=== PATIENT | female | born 1945 | race Caucasian/White ===

== ENCOUNTER 2017-10-16 14:20 | Observation (INO) | payer MEDICARE, SELFPAY ==
[2017-10-16] VITALS (12 sets, daily range): BP systolic 115–182; BP diastolic 71–100; PULSE 85–131; RESP 16–19; TEMP 36.4–36.7; O2SAT 97–99; BMI 29.7; BMI 30.4
--- NOTE | 2017-10-16 14:32 | RAD_ITS ---
STUDY: X-RAY CHEST REASON FOR EXAM: Female, 72 years old. Near-syncope episode. TECHNIQUE: AP upright portable view. COMPARISON: None. FINDINGS: The lungs are clear and expanded. There is no demonstrated pleural abnormality. Normal size heart. Normal mediastinum and jazmín. Normal visualized pulmonary arteries. Normal visualized aortic arch and descending thoracic aorta. Normal visualized thoracic spine. Normal visualized ribs, clavicles, and shoulders. There is no demonstrated abnormality of the visualized soft tissue structures of the upper abdomen. RAD/Chest 1 View (Portable) IMPRESSION: Normal x-ray examination of the chest. Electronically Signed: Scott Peralta MD at 15:17 EST , Service support ,
--- NOTE | 2017-10-16 14:33 | EKG12_ITS ---
Test Reason : SYNCOPE Blood Pressure : / mmHG Vent. Rate : 102 BPM Atrial Rate : 102 BPM P-R Int : 162 ms QRS Dur : 142 ms QT Int : 398 ms P-R-T Axes : 055 072 023 degrees QTc Int : 518 ms Sinus tachycardia Right bundle branch block Abnormal ECG Confirmed by ESEQUIEL XIAO, PARTHA ([id number]), film or videotape editor JARAD SALVADOR ([id number]) on 10/18/2017 4:06:29 PM Referred By: DEDRA Confirmed By:PARTHA IRAHETA MD
[2017-10-16 14:59] LABS: Absolute Lymphocyte Count 1.59 X10^3/ul (0.83-4.51); Absolute Neutrophil Count 3.7 X10^3/uL (2.0-7.7); Basophil# 0.14 X10^3/uL; Basophil% 2.1 % (0-1); Eosinophil# 0.46 X10^3/uL; Eosinophils% 6.9 % (0-5); Hematocrit 45.3 % (37-47); Hemoglobin 15.3 g/dl (12.0-15.0); Lymphocyte # 1.59 X10^3/ul (4.0); Mean Corp Hgb Conc 33.8 g/gl (32-36); Mean Corpuscular Volume 91.9 fL (81-99); Mean Platelet Vol. 8.7 fl (6.2-12.0); Monocyte# 0.76 X10^3/uL; Monocyte% 11.5 % (0-10); Neutrophil # 3.66 X10^3/uL (2.7-7.7); Neutrophil % 55.2 % (47-70); POSITIVE COUNT NO; POSITIVE DIFFERENTIAL NO; POSITIVE MORPHOLOGY NO; Platelet Count 278 K/mm3 (150-450); RBC Distribution Width CV 13.5 % (11.6-14.6); RBC Distribution Width SD 44.7 fl (35.1-43.9); Red Blood Count 4.93 M/mm3 (4.2-5.4); White Blood Count 6.6 K/mm3 (4.4-11.0)
[2017-10-16] MEDS: 0.9% Normal Saline 1,000 ML 150 ML IV (15:10)
[2017-10-16 15:14] LABS: Anion Gap 8 (5-15); BUN 16 mg/dL (7-18); BUN/Creat Ratio 21.5 RATIO (10-20); Calcium,Total 9.5 mg/dL (8.5-10.1); Chloride 107 mmol/L (98-107); Creatinine, Serum 0.74 mg/dL (0.55-1.02); EST Glomerular Filtration Rate 82 mL/min (>60); Est Glom Filt Rate - Afr Amer 99 mL/min (>60); Estimated Creatinine Clearance 43.91 ml/min; Glucose 83 mg/dL (74-106); Potassium 4.2 mmol/L (3.5-5.1); Sodium Level 140 mmol/L (136-145)
[2017-10-16 15:31] LABS: Bacteria 0 SEEN /hpf (None Seen); Mucous, Urine 0 SEEN /hpf (<or=2+); Red Blood Cells-Urine 0 SEEN /hpf (0-5); Squamous Epithelial Cells - UA 0 SEEN /hpf (5-10)
[2017-10-16 15:36] LABS: Color, Urine Yellow (Yellow); Glucose, Dipstick Normal (Normal); Ketone-Dipstick Negative (Negative); Leukocyte Esterase-Dipstick 100 /ul (Negative); Nitrite-Dipstick Negative (Negative); Occult Blood-Urine Negative /ul (Negative); Protein-Dipstick Negative (Negative); Specific Gravity, Urine 1.015 (1.002-1.030); Urine Bilirubin Dipstick Negative (Negative); Urine Clarity Clear (Clear); Urine Urobilinogen Normal (Normal); Urine pH 6.5 (5.0 - 8.0)
[2017-10-16 15:42] LABS: White Blood Cells 0-5 SEEN /hpf (0-5)
[2017-10-16 15:46] LABS: Transitional Epithelial - Ur 0-5 SEEN /hpf (0-5)
--- NOTE | 2017-10-16 16:25 | ED.DCSUM_ITS ---
- ER Visit Summary Date of Service: 10/16/17 Chief Complaint: [Near syncope] History of Present Illness: The patient is a 72 F [presents the emergency department with a near syncopal episode that occurred about 5 minutes ago. Patient states that she was in her car when she began feeling very lightheaded, dizzy, nauseated, and felt like she was going to pass out. Patient states that she had an episode about 2 weeks ago where she did pass out. During her first episode she apparently had pain/cramps of her legs that cause her to feel lightheaded, dizzy, hot, sweaty, and she passed out. After her initial episode apparently she was seen by Dr. Reji Mcgee's office and patient had an EKG followed up by a 2D echo which she did not know the results of. Patient has no cardiac history. She does have a history of asthma. She denies recent travel or surgery. She denies any chest pain or palpitations.] Physical Examination: [HEENT-PERRLA, EOMI. Cranial nerves II through XII grossly intact. TMs clear. Mucous membranes moist. No adenopathy. Cardiovascular-regular rate and rhythm without murmur or ectopy Lungs-clear to auscultation, chest wall stable without crepitus or subcu emphysema Abdomen-normoactive bowel sounds, soft, nontender, no rebound or rigidity, no peritoneal signs. Extremities-intact ?4, normal range of motion, normal pulses, atraumatic] Test Results: EKG obtained arrival shows sinus rhythm with a rate of 102 bpm with a right bundle branch block. No old EKGs available for comparison. CBC with differential was normal. Chemistries were normal. Urinalysis was normal. Troponin was less than 0.02. Chest x-ray was normal. Orthostatic vital signs were normal.] Emergency Department Course and Treatment: Results discussed with patient and recommended admission for further workup and evaluation.] Treatment Plan: [Admit] Disposition: [Admit] Impression: [Near syncope] This note was generated with [employer] dictation software. It may contain incorrect words, spelling, and punctuation that were not noted in review of the chart prior to signing ED Disposition - Plan for ED Patient: Chief Complaint: Syncope Referrals: Jeancarlos Baugh MD [Primary Care Provider] -
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
[2017-10-16 17:54] LABS: Magnesium 2.1 mg/dL (1.6-2.6)
[2017-10-16 17:55] LABS: Phosphorus 2.8 mg/dL (2.5-4.9)
[2017-10-16] MEDS: 0.9% Normal Saline 1,000 ML 100 ML IV (18:01)
[2017-10-16] MEDS: Ipratropium/Albuterol Sulfate 3 ML AMPUL.NEB INHALATION (19:00)
[2017-10-16] MEDS: Famotidine 20 MG Tablet PO (21:08)
[2017-10-16] MEDS: LORazepam 1 MG Tablet PO (22:11)
[2017-10-17] VITALS (14 sets, daily range): BP systolic 134–149; BP diastolic 72–97; PULSE 78–103; RESP 16–18; TEMP 36.6–36.9; O2SAT 93–98
[2017-10-17] MEDS: 0.9% Normal Saline 1,000 ML 100 ML IV (01:45)
[2017-10-17 05:08] LABS: Hematocrit 41.9 % (37-47); Hemoglobin 13.9 g/dl (12.0-15.0); Mean Corp Hgb Conc 33.2 g/gl (32-36); Mean Corpuscular Hgb 30.9 pg (27.0-32.0); Mean Corpuscular Volume 93.1 fL (81-99); Mean Platelet Vol. 9.1 fl (6.2-12.0); Platelet Count 254 K/mm3 (150-450); RBC Distribution Width CV 13.2 % (11.6-14.6); White Blood Count 5.7 K/mm3 (4.4-11.0)
[2017-10-17 05:12] LABS: Scan Indicated on CBC? Y/N NO
[2017-10-17 05:48] LABS: Anion Gap 10 (5-15); BUN 12 mg/dL (7-18); BUN/Creat Ratio 21.9 RATIO (10-20); Calcium,Total 8.6 mg/dL (8.5-10.1); Chloride 110 mmol/L (98-107); Creatinine, Serum 0.55 mg/dL (0.55-1.02); EST Glomerular Filtration Rate 116 mL/min (>60); Est Glom Filt Rate - Afr Amer 140 mL/min (>60); Estimated Creatinine Clearance 43.91 ml/min; Glucose 80 mg/dL (74-106); Potassium 3.9 mmol/L (3.5-5.1); Sodium Level 145 mmol/L (136-145)
--- NOTE | 2017-10-17 05:55 | EKG12_ITS ---
Test Reason : AM EKG Blood Pressure : / mmHG Vent. Rate : 081 BPM Atrial Rate : 081 BPM P-R Int : 166 ms QRS Dur : 152 ms QT Int : 412 ms P-R-T Axes : 052 058 030 degrees QTc Int : 478 ms Normal sinus rhythm Right bundle branch block Abnormal ECG When compared with ECG of 16-OCT-2017 14:43, MANUAL COMPARISON REQUIRED, DATA IS UNCONFIRMED Confirmed by ESEQUIEL XIAO, PARTHA ([id number]), editor managing newspaper JARAD SALVADOR ([id number] on 10/19/2017 1:44:23 PM Referred By: TAVO Confirmed By:PARTHA IRAHETA MD
--- NOTE | 2017-10-17 05:55 | CDU_ITS ---
Reason For Study: SYNCOPE Rt. Velocities/BP Lt. Velocities/BP Prox CCA 79.2/20.5 cm/sec. Prox CCA 88.5/21.1 cm/sec. Mid CCA 68.0/21.7 cm/sec. Mid CCA 86.8/27.6 cm/sec. Dist CCA 70.4/21.7 cm/sec. Dist CCA 86.2/26.4 cm/sec. Prox ICA 40.5/9.76 cm/sec. Prox ICA 65.1/19.3 cm/sec. Mid ICA 57.8/22.4 cm/sec. Mid ICA 76.8/28.1 cm/sec. Dist ICA 76.7/32.0 cm/sec. Dist ICA 80.9/33.8 cm/sec. Rt. ICA/CCA = 76.7/68.0=1.1. Lt. ICA/CCA = 0.9. Prox ECA 77.4/14.1 cm/sec. Prox ECA 84.4/22.3 cm/sec. Rt. Vert. 25.1/7.07 cm/sec. Lt. Vert. 52.2/18.9 cm/sec. Right Extracranial There is no significant atherosclerotic plaque noted in the right common carotid artery. There is intimal thickening but no significant atherosclerotic plaque noted in the right internal carotid artery. There is no significant atherosclerotic plaque noted in the right external carotid artery. Antegrade flow is noted in the right vertebral artery. Left Extracranial There is no significant atherosclerotic plaque noted in the left common carotid artery. There is intimal thickening but no significant atherosclerotic plaque noted in the left internal carotid artery. There is no significant atherosclerotic plaque noted in the left external carotid artery. Antegrade flow is noted in the left vertebral artery. Procedure Carotid Duplex [id number]. The exam was diagnostic. Exam performed portable in patient room. Interpretation Summary No hemodynamically significant plague or stenosis bilateral internal carotids with <50% stenosis. Normal flow bilateral external carotids Patent and antegrade vertebrals bilaterally Ordering Physician: Chayito Grijalva Referring Physician: Jeancarlos Baugh Performed By: Nasra Meredith RDCS, RVT
[2017-10-17] MEDS: Ipratropium/Albuterol Sulfate 3 ML AMPUL.NEB INHALATION ×2 (06:56→19:47)
[2017-10-17] MEDS: 0.9% NaCl Peripheral Flush Adult/Peds IV (09:29)
--- NOTE | 2017-10-17 10:42 | CON.PCM_ITS ---
Reason for Consult Date of Consultation: 10/17/17 Reason for Consultation: syncope History of Present Illness: The patient is a 72 year old RIGHT HANDED white female presents with syncope, reports two episodes of passing out, reports similar sensations with actually passing out and with other non-syncopal spells. witnessed the events, reports the first time her tongue was hanging out and she was pale, he yelled at her and she awoke. the second episode she jumped out of bed due to a leg cramp, then ended up on the floor, immediaty awoke, no shaking or tongue biting , but did loose urinary incontinence. both events occurred while standing, other events not associated with loc can occur while sitting. reports the first sensation is spacey. feels hot. nausea. per h&p:The patient is a 72 y/o F w/ PMHx: Asthma, Unclear Remote Hx BL LE pain treated with several months tapering steroids, IBS who presents to the [facility] ED on 10/16/17 w/ history of ongoing intermittent sycopal events and most recently near syncopal event while the seated passenger in a car. She notes intermittent episodes over the years noting they occur primarily when she has been in a standing position and often following BL LE onset severe muscle cramps. She has been evaluated recently per her PCP and was referred to Cardiology w/ EKG RBBB and recent ECHO CC with no marked findings. In the ED work-up included unremarkable VS, including negative orthostatics, unremarkable CBC, unremarkable BMP, normal trop x 1, repeat EKG w/ RBBB, CXR without acute process. In the ED she notes feeling well, no dizziness, lightheadedness. She denies any associated chest pain or dyspnea with these events or prior. She notes in the past she did have one episode with loss of bowels with the event. She does have intermittent muscle cramping and does not have syncope associated but does have severe pain. Her following some of these episodes notes she has been moaning in pain following syncope. Discussed with Dr. Mcgee upon admission and to assure no cardiac etiology although atypical will cycle cardiac enzymes, maintain on monitor, perform cardiac stress testing, plan Dr. Mcgee set-up HM upon discharge to home when seen at follow-up in his office. Past Medical History Past Medical History (Chronic Problems): Chronic Problems Asthma (Chronic) IBS (irritable bowel syndrome) (Chronic) Allergies acetaminophen [From Percocet] Adverse Reaction (Verified 10/16/17 17:30) Upset Stomach codeine Adverse Reaction (Verified 10/16/17 17:30) Upset Stomach oxycodone [From Percocet] Adverse Reaction (Verified 10/16/17 17:30) Upset Stomach tramadol [From Ultram] Adverse Reaction (Verified 10/16/17 17:30) Upset Stomach Home Medications: Ambulatory Orders Medication Instructions Recorded Fluticasone Propionate 1 spr NASAL QHS 10/16/17 Fluticasone/Salmeterol [Advair 2 puff IH BID 10/16/17 100-50 Diskus] Surgical History: - - Kidney stone removal, tubal ligation. 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 Lives: Spouse/ Significant Other Smoking Status: Never smoker Alcohol: Rare Drugs: None - *Family History Paternal History Items: Cancer Maternal History Items: Stroke Review of Systems Constitutional: Denies: Chills, Fever, Weight Change HEENT: Denies: Head Aches, Sinus Congestion, Sinus Drainage Cardiovascular: Denies: Chest Pain, Palpitations Respiratory: Denies: Cough, Shortness of breath at rest, Sputum production Gastrointestinal: Denies: Abdominal Pain, Nausea, Vomiting Genitourinary: Denies: Dysuria Musculoskeletal: Denies: Joint Pain, Joint Tenderness Skin: Denies: Rash, Wounds Neurological: Denies: Numbness, Tingling, Focal weakness Psychiatric: Denies: Anxiety, Depression, Homicidal Ideations, Suicidal Ideations Hematologic/ Lymphatic: Denies: Easy Bruising, Easy Bleeding - Physical Exam General: Alert, Oriented x3, Cooperative HEENT: Atraumatic, PERRLA, EOMI, Normocephalic Neck: Supple, No JVD, Negative Carotid Bruits Lungs: Clear to auscultation, Normal air movement Cardiovascular: Regular rate, No murmurs Abdomen: Bowel Sounds Present, Soft, Non Tender Extremities: No edema, Capillary Refill Less than 3 Seconds Skin: No rashes, No breakdown Musculoskeletal: No Tenderness to Palpation of Joints or Extremities Neurological: Cranial nerves II-XII grossly intact Psych/Mental Status: Normal Affect, Appropriate Vital Signs Temp Pulse Resp BP Pulse Ox 36.9 C 100 16 135/79 H 95 10/17/17 06:00 10/17/17 07:59 10/17/17 06:56 10/17/17 06:00 10/17/17 06:56 Oxygen Delivery Method Room Air Weight: 80.4 kg Body Mass Index (BMI) 30.4 Orthostatic Vital Signs Start: 10/16/17 17:53 Freq: q24h Status: Active Protocol: Activity Type Activity Date Activity User E-Sign Co-Sign Detail Recorded Client Recorded Date Recorded By Document 10/16/17 17:53 MJO [id number] 10/16/17 17:55 MJO 10/16/17 17:53 Orthostatic Vitals Standing -Blood Pressure (90/60-120/80) 151/99 H -Extremity Use Right Arm -Pulse Rate (60-100) 100 Sitting -Blood Pressure (90/60-120/80) 160/92 H -Extremity Use Right Arm -Pulse Rate (60-100) 96 Lying -Blood Pressure (90/60-120/80) 149/94 H -Extremity Use Right Arm -Pulse Rate (60-100) 91 Intake and Output for Last 24 Hours 10/15/17 10/16/17 10/17/17 23:59 23:59 23:59 Intake Total 671 / 671 870 / 870 Balance 671 / 671 870 / 870 Laboratory Tests Past 24 Hrs 10/16/17 10/16/17 10/17/17 18:35 22:55 04:45 WBC 5.7 RBC 4.50 Hgb 13.9 Hct 41.9 MCV 93.1 MCH 30.9 MCHC 33.2 RDW 13.2 RDW Differential 44.0 H Plt Count 254 MPV 9.1 Sodium Potassium Chloride Carbon Dioxide Anion Gap BUN Creatinine Estim Creat Clear Calc Est GFR (MDRD) Af Amer Est GFR (MDRD) Non-Af BUN/Creatinine Ratio Glucose Calcium Troponin I < 0.02 < 0.02 10/17/17 10/17/17 04:45 04:45 WBC RBC Hgb Hct MCV MCH MCHC RDW RDW Differential Plt Count MPV Sodium 145 Potassium 3.9 Chloride 110 H Carbon Dioxide 25.0 Anion Gap 10 BUN 12 Creatinine 0.55 Estim Creat Clear Calc 43.91 Est GFR (MDRD) Af Amer 140 Est GFR (MDRD) Non-Af 116 BUN/Creatinine Ratio 21.9 H Glucose 80 Calcium 8.6 Troponin I < 0.02 Assessment/Plan syncope, likely non-neurologic, although these may be triggered by leg cramps at night. ativan helped last night, consider ativan 0.[address] head eeg await results of cardiac workup
[2017-10-17] MEDS: Psyllium 1 PACKET PO (10:53)
[2017-10-17] MEDS: Famotidine 20 MG Tablet PO (10:53)
--- NOTE | 2017-10-17 11:21 | CT_ITS ---
STUDY: CT BRAIN WITHOUT CONTRAST REASON FOR EXAM: Female, 72 years old. Altered mental status. Syncope. RADIATION DOSAGE (If Supplied By Facility): CTDIvol = ( 44.99 ) mGy, DLP = ( 745.49 ) mGycm TECHNIQUE: Transaxial CT imaging of the brain was performed without administration of intravenous contrast material. Individualized dose optimization techniques were used for this CT. COMPARISON: None. FINDINGS: Normal soft tissue structures. Normal calvarium. Normal size ventricles and extra-axial spaces for the patient's age. Normal white matter tracts of the cerebral hemispheres. Normal basal ganglia and thalami. Normal brainstem. Normal cerebellum. There is no intracranial hemorrhage. There are no findings of an acute ischemic infarction. Opacification of the ethmoid sinuses. Partial opacification of the left frontal sinus. Air-fluid level in the right maxillary sinus as well as the right sphenoid sinus. CT/Brain/Head without Contrast IMPRESSION: Retana sinusitis. No acute intracranial abnormality is seen. Electronically Signed: Ben Nj MD at 12:25 EST Tel [phone], Service support ,
--- NOTE | 2017-10-17 12:13 | STRESSREP ---
Stress Test Report Pharmacologic myocardial perfusion stress test. 72-year-old lady with a history of chest pain. And near syncopal event. Stress protocol. Resting EKG demonstrates normal sinus rhythm with a rate of 85 bpm. Right bundle branch block pattern noted. Resting blood pressure is 142/84 mmHg. 0.4 mg of regadenoson was infused per usual protocol followed Intravenous saline flush injection. Continuous EKG monitoring was performed. The maximum heart rate attained was 115 bpm was 77% maximum predicted heart rate the maximum workload was 1 metabolic equivalent. At rest there were no ST or T-wave changes noted suggest abnormal flow reserve at peak infusion no ST or T-wave changes were noted suggest abnormal flow reserve. No clinical angina was noted. Resting blood pressure is 142/84 with a final blood pressure 140/84. Myocardial perfusion protocol. 11.4 mCi of technetium 99m sestamibi was injected at rest. 0.4 mg of regadenoson was infused per usual protocol. At peak infusion 33.6 mCi of technetium 99m sestamibi was injected. Stress images were obtained. Stress and rest images were reconstructed and compared in the short axis vertical long and horizontal long axis. Gated images were also obtained. Perfusion SPECT analysis: Review of the stress images demonstrate normal uptake of tracer noted in all areas of myocardium. The resting images similarly demonstrate normal uptake of tracer noted in all areas of myocardium. No areas of reversibility are noted suggest ischemia no previous infarct is noted. Gated SPECT analysis. The gated ejection fraction is 79% with no wall motion abnormalities. Conclusion: Normal pharmacologic myocardial perfusion stress test. Preserved ejection fraction.
--- NOTE | 2017-10-17 12:27 | PCM.DC.SUM ---
Discharge Date and Diagnosis Date of Admission: 10/16/17 Date of Discharge: 10/18/17 - Primary Discharge Diagnosis 1. Recurrent syncope - Secondary Discharge Diagnosis Chronic Problems Asthma (Chronic) IBS (irritable bowel syndrome) (Chronic) Hospital Course and Treatment Imaging Results: Diagnostic Data Chest X-Ray 10/16/17 14:32 IMPRESSION: Normal x-ray examination of the chest. Electronically Signed: Scott Peralta MD at 15:17 EST , Service support , Brain CT 10/17/17 11:21 IMPRESSION: Retana sinusitis. No acute intracranial abnormality is seen. Electronically Signed: Ben Nj MD at 12:25 EST Tel [phone], Service support , Dr. Arroyo- Neurology Dr. Cheung- Cardiology Operations: None Procedures: Stress test, - - Carotid duplex Summary of Care Provided: The patient is a 72 year old F admitted 10/16/17 due to recurrent syncopal episodes. She saw PCP after recent episode who ordered an EKG which was found to be abnormal and patient was referred to Dr. Olivas, [facility] for echocardiogram. Echo reported to be normal by cardiology. Patient states she has intense muscle cramping of both lower extremities nightly and is scared to get out of bed as she feels this has been associated with syncopal episodes in the past. She denies prior cardiac history. No history of seizures. Her past medical history includes asthma and IBS. 1. Recurrent syncopal episodes- reports previous episodes of syncope associated with muscle spasms/painful cramping of lower extremities. However, syncope/pre-syncope has also occurred without the presence of the symptoms. Echocardiogram reported by [facility] cardiology was reported to be normal. No events noted on telemetry. Troponin negative. Urinalysis negative. Electrolytes, TSH within normal limits. Patient underwent nuclear stress test was negative for ischemia. Orthostatic vitals negative. Chest x-ray in ER unremarkable. Carotid duplex ultrasound with less than 50% stenosis bilaterally. EEG pending at discharge. Brain CT showed pansinusitis, no acute intracranial abnormality. Patient will follow up with Dr. Cheung 10/24/2017 for loop recorder placement. Patient feels part of her symptoms at nighttime are secondary to anxiety. Discussed with patient further addressing this with primary care physician as outpatient. Neurology consulted during admission and do not feel symptoms are neurologic in nature. 2. Mild intermittent asthma- No acute exacerbation. 3. IBS-Continue home regimen of probiotic and Metamucil. General: Alert, Oriented x3, Cooperative, No apparent distress HEENT: Atraumatic, PERRLA, EOMI, Normocephalic Neck: Supple, No JVD, Negative Carotid Bruits Lungs: Clear to auscultation, Normal air movement Cardiovascular: Regular rate, Regular Rhythm, Normal S1, Normal S2, No murmurs Abdomen: Bowel Sounds Present, Soft, Non Tender, Non-Distended Extremities: No clubbing, No cyanosis, No edema, Capillary Refill Less than 3 Seconds Skin: No rashes, No breakdown Musculoskeletal: No Tenderness to Palpation of Joints or Extremities Neurological: Cranial nerves II-XII grossly intact, Neuro grossly intact Psych/Mental Status: Normal Affect, Appropriate Patient seen and examined prior to discharge. Physical assessment as noted above. Patient denies further dizziness, syncope. Follow-up as noted above. This patient was seen by MASSIEL Mathews under the supervision of Dr. Jones. Discharge Diet: No Restrictions Discharge Activity: [address] - Until approved by Dr. Mcgee, cardiology Call your doctor if you observe: Shortness of breath, Dizziness, Fainting spells, Chest pain, Increased palpitations (irregular heartbeat) Home Medications: Medications to take at Discharge Fluticasone Propionate 1 spr NASAL QHS 10/16/17 Fluticasone/Salmeterol [Advair 100-50 Diskus] 2 puff IH BID 10/16/17 Primary Care Physician: Jeancarlos Baugh MD [Primary Care Provider] - Please follow up with your Primary Care Physician in: 1 Week Please Follow Up With: Brennan Cheung MD When: 10/24/17 Disposition: Home Minutes spent on discharge:: 35 Patient Condition:: Stable Meaningful Use Info Meaningful Use Diagnoses (Choose all that apply): None applicable
--- NOTE | 2017-10-17 12:34 | DS.PCM_ITS ---
Discharge Date and Diagnosis Date of Admission: 10/16/17 Date of Discharge: 10/18/17 - Primary Discharge Diagnosis 1. Recurrent syncope - Secondary Discharge Diagnosis Chronic Problems Asthma (Chronic) IBS (irritable bowel syndrome) (Chronic) Hospital Course and Treatment Imaging Results: Diagnostic Data Chest X-Ray 10/16/17 14:32 IMPRESSION: Normal x-ray examination of the chest. Electronically Signed: Scott Peralta MD at 15:17 EST , Service support , Brain CT 10/17/17 11:21 IMPRESSION: Retana sinusitis. No acute intracranial abnormality is seen. Electronically Signed: Ben Nj MD at 12:25 EST Tel [phone], Service support , Dr. Arroyo- Neurology Dr. Cheung- Cardiology Operations: None Procedures: Stress test, - - Carotid duplex Summary of Care Provided: The patient is a 72 year old F admitted 10/16/17 due to recurrent syncopal episodes. She saw PCP after recent episode who ordered an EKG which was found to be abnormal and patient was referred to Dr. Olivas, [facility] for echocardiogram. Echo reported to be normal by cardiology. Patient states she has intense muscle cramping of both lower extremities nightly and is scared to get out of bed as she feels this has been associated with syncopal episodes in the past. She denies prior cardiac history. No history of seizures. Her past medical history includes asthma and IBS. 1. Recurrent syncopal episodes- reports previous episodes of syncope associated with muscle spasms/painful cramping of lower extremities. However, syncope/pre-syncope has also occurred without the presence of the symptoms. Echocardiogram reported by [facility] cardiology was reported to be normal. No events noted on telemetry. Troponin negative. Urinalysis negative. Electrolytes, TSH within normal limits. Patient underwent nuclear stress test was negative for ischemia. Orthostatic vitals negative. Chest x-ray in ER unremarkable. Carotid duplex ultrasound with less than 50% stenosis bilaterally. EEG pending at discharge. Brain CT showed pansinusitis, no acute intracranial abnormality. Patient will follow up with Dr. Cheung 10/24/2017 for loop recorder placement. Patient feels part of her symptoms at nighttime are secondary to anxiety. Discussed with patient further addressing this with primary care physician as outpatient. Neurology consulted during admission and do not feel symptoms are neurologic in nature. 2. Mild intermittent asthma- No acute exacerbation. 3. IBS-Continue home regimen of probiotic and Metamucil. General: Alert, Oriented x3, Cooperative, No apparent distress HEENT: Atraumatic, PERRLA, EOMI, Normocephalic Neck: Supple, No JVD, Negative Carotid Bruits Lungs: Clear to auscultation, Normal air movement Cardiovascular: Regular rate, Regular Rhythm, Normal S1, Normal S2, No murmurs Abdomen: Bowel Sounds Present, Soft, Non Tender, Non-Distended Extremities: No clubbing, No cyanosis, No edema, Capillary Refill Less than 3 Seconds Skin: No rashes, No breakdown Musculoskeletal: No Tenderness to Palpation of Joints or Extremities Neurological: Cranial nerves II-XII grossly intact, Neuro grossly intact Psych/Mental Status: Normal Affect, Appropriate Patient seen and examined prior to discharge. Physical assessment as noted above. Patient denies further dizziness, syncope. Follow-up as noted above. This patient was seen by MASSIEL Mathews under the supervision of Dr. Jones. Discharge Diet: No Restrictions Discharge Activity: [address] - Until approved by Dr. Mcgee, cardiology Call your doctor if you observe: Shortness of breath, Dizziness, Fainting spells , Chest pain, Increased palpitations (irregular heartbeat) Home Medications: Medications to take at Discharge Fluticasone Propionate 1 spr NASAL QHS 10/16/17 Fluticasone/Salmeterol [Advair 100-50 Diskus] 2 puff IH BID 10/16/17 Primary Care Physician: Jeancarlos Baugh MD [Primary Care Provider] - Please follow up with your Primary Care Physician in: 1 Week Please Follow Up With: Brennan Cheung MD When: 10/24/17 Disposition: Home Minutes spent on discharge:: 35 Patient Condition:: Stable Meaningful Use Info Meaningful Use Diagnoses (Choose all that apply): None applicable
--- NOTE | 2017-10-17 12:35 | DCINST_ITS ---
- Discharge Diagnoses Current Active Problems: Current Active and Chronic Problems Asthma (Chronic) IBS (irritable bowel syndrome) (Chronic) You will use the following diet at home:: No restrictions Call your doctor if you observe: Shortness of breath, Dizziness, Fainting spells , Chest pain, Increased palpitations (irregular heartbeat) Allergies/Adverse Reactions: Allergies acetaminophen [From Percocet] Adverse Reaction (Verified 10/16/17 17:30) Upset Stomach codeine Adverse Reaction (Verified 10/16/17 17:30) Upset Stomach oxycodone [From Percocet] Adverse Reaction (Verified 10/16/17 17:30) Upset Stomach tramadol [From Ultram] Adverse Reaction (Verified 10/16/17 17:30) Upset Stomach Medications to take at Discharge Fluticasone Propionate 1 spr NASAL QHS 10/16/17 Fluticasone/Salmeterol [Advair 100-50 Diskus] 2 puff IH BID 10/16/17 Primary Care Physician: Jeancarlos Baugh MD [Primary Care Provider] - Please follow up with your Primary Care Physician in: 1 Week Please Follow Up With: Brennan Cheung MD When: 10/24/17 Proposed Discharge Date: 10/18/17
--- NOTE | 2017-10-17 13:00 | PCM.PROGNOTE ---
<Lilo James - Last Filed: 10/17/17 13:03> Subjective: Patient seen and examined. Denies further syncopal episodes. Denies dizziness, lightheadedness. States she had an episode overnight where she felt anxious and her heart rate was elevated. Cramping legs were relieved with Ativan which she was given during the night. Denies chest pain, shortness of breath. Denies other complaints. - Physical Exam General: Alert, Oriented x3, Cooperative, No apparent distress HEENT: Atraumatic, PERRLA, EOMI, Normocephalic Neck: Supple, No JVD, Negative Carotid Bruits Lungs: Clear to auscultation, Normal air movement Cardiovascular: Regular rate, Regular Rhythm, Normal S1, Normal S2, No murmurs Abdomen: Bowel Sounds Present, Soft, Non Tender Extremities: No clubbing, No cyanosis, No edema, Capillary Refill Less than 3 Seconds Skin: No rashes, No breakdown Musculoskeletal: No Tenderness to Palpation of Joints or Extremities Neurological: Cranial nerves II-XII grossly intact, Neuro grossly intact Psych/Mental Status: Normal Affect, Appropriate Vital Signs Temp Pulse Resp BP Pulse Ox 97.9 F 103 H 16 139/72 H 98 10/17/17 10:51 10/17/17 11:34 10/17/17 10:51 10/17/17 10:51 10/17/17 10:51 Oxygen Delivery Method Room Air Weight: 80.4 kg Body Mass Index (BMI) 30.4 Orthostatic Vital Signs Start: 10/16/17 17:53 Freq: q24h Status: Active Protocol: Activity Type Activity Date Activity User E-Sign Co-Sign Detail Recorded Client Recorded Date Recorded By Document 10/16/17 17:53 MJO [id number] 10/16/17 17:55 MJO 10/16/17 17:53 Orthostatic Vitals Standing -Blood Pressure (90/60-120/80) 151/99 H -Extremity Use Right Arm -Pulse Rate (60-100) 100 Sitting -Blood Pressure (90/60-120/80) 160/92 H -Extremity Use Right Arm -Pulse Rate (60-100) 96 Lying -Blood Pressure (90/60-120/80) 149/94 H -Extremity Use Right Arm -Pulse Rate (60-100) 91 Intake and Output for Last 24 Hours 10/15/17 10/16/17 10/17/17 23:59 23:59 23:59 Intake Total 671 / 671 1579 / 1579 Balance 671 / 671 1579 / 1579 Laboratory Tests Past 24 Hrs 10/16/17 10/16/17 10/17/17 18:35 22:55 04:45 WBC 5.7 RBC 4.50 Hgb 13.9 Hct 41.9 MCV 93.1 MCH 30.9 MCHC 33.2 RDW 13.2 RDW Differential 44.0 H Plt Count 254 MPV 9.1 Sodium Potassium Chloride Carbon Dioxide Anion Gap BUN Creatinine Estim Creat Clear Calc Est GFR (MDRD) Af Amer Est GFR (MDRD) Non-Af BUN/Creatinine Ratio Glucose Calcium Troponin I < 0.02 < 0.02 10/17/17 10/17/17 04:45 04:45 WBC RBC Hgb Hct MCV MCH MCHC RDW RDW Differential Plt Count MPV Sodium 145 Potassium 3.9 Chloride 110 H Carbon Dioxide 25.0 Anion Gap 10 BUN 12 Creatinine 0.55 Estim Creat Clear Calc 43.91 Est GFR (MDRD) Af Amer 140 Est GFR (MDRD) Non-Af 116 BUN/Creatinine Ratio 21.9 H Glucose 80 Calcium 8.6 Troponin I < 0.02 Assessment/Plan The patient is a 72 year old F admitted 10/16/17 due to recurrent syncopal episodes. She saw PCP after recent episode who ordered an EKG which was found to be abnormal and patient was referred to Dr. Olivas [facility] for echocardiogram. Echo reported to be normal by cardiology. Patient states she has intense muscle cramping of both lower extremities nightly and is scared to get out of bed as she feels this has been associated with syncopal episodes in the past. She denies prior cardiac history. No history of seizures. Her past medical history includes asthma and IBS. 1. Recurrent syncopal episodes- reports previous episodes of syncope associated with muscle spasms/painful cramping of lower extremities. However, syncope/pre-syncope has also occurred without the presence of the symptoms. Echocardiogram reported by [facility] cardiology was reported to be normal. No events noted on telemetry. Troponin negative. Urinalysis negative. Electrolytes, TSH within normal limits. Patient underwent nuclear stress test was negative for ischemia. Orthostatic vitals negative. Chest x-ray in ER unremarkable. Carotid duplex ultrasound and EEG pending. Neurology consulted who does not feel symptoms are neurologic in nature. Cardiology consulted who plans on placing a loop recorder in the morning and patient can be discharged afterwards. N.p.o. at midnight. Hold Lovenox prior to loop recorder placement. 2. Mild intermittent asthma- Albuterol PRN. No acute exacerbation. 3. IBS-Continue home regimen of probiotic and Metamucil. DVT prophylaxis-SCDs, Lovenox. Hold Lovenox prior to loop recorder placement tomorrow. This patient was seen by MASSIEL Mathews under the supervision of Dr. Jones. <Jennifer Jones - Last Filed: 10/17/17 14:44> - Physical Exam Vital Signs Temp Pulse Resp BP Pulse Ox 97.9 F 103 H 16 139/72 H 98 10/17/17 10:51 10/17/17 11:34 10/17/17 10:51 10/17/17 10:51 10/17/17 10:51 Oxygen Delivery Method Room Air Weight: 80.4 kg Body Mass Index (BMI) 30.4 Orthostatic Vital Signs Start: 10/16/17 17:53 Freq: q24h Status: Active Protocol: Activity Type Activity Date Activity User E-Sign Co-Sign Detail Recorded Client Recorded Date Recorded By Document 10/16/17 17:53 MJO [id number] 10/16/17 17:55 MJO 10/16/17 17:53 Orthostatic Vitals Standing -Blood Pressure (90/60-120/80) 151/99 H -Extremity Use Right Arm -Pulse Rate (60-100) 100 Sitting -Blood Pressure (90/60-120/80) 160/92 H -Extremity Use Right Arm -Pulse Rate (60-100) 96 Lying -Blood Pressure (90/60-120/80) 149/94 H -Extremity Use Right Arm -Pulse Rate (60-100) 91 Intake and Output for Last 24 Hours 10/15/17 10/16/17 10/17/17 23:59 23:59 23:59 Intake Total 671 / 671 1579 / 1579 Balance 671 / 671 1579 / 1579 Laboratory Tests Past 24 Hrs 10/16/17 10/16/17 10/17/17 18:35 22:55 04:45 WBC 5.7 RBC 4.50 Hgb 13.9 Hct 41.9 MCV 93.1 MCH 30.9 MCHC 33.2 RDW 13.2 RDW Differential 44.0 H Plt Count 254 MPV 9.1 Sodium Potassium Chloride Carbon Dioxide Anion Gap BUN Creatinine Estim Creat Clear Calc Est GFR (MDRD) Af Amer Est GFR (MDRD) Non-Af BUN/Creatinine Ratio Glucose Calcium Troponin I < 0.02 < 0.02 10/17/17 10/17/17 04:45 04:45 WBC RBC Hgb Hct MCV MCH MCHC RDW RDW Differential Plt Count MPV Sodium 145 Potassium 3.9 Chloride 110 H Carbon Dioxide 25.0 Anion Gap 10 BUN 12 Creatinine 0.55 Estim Creat Clear Calc 43.91 Est GFR (MDRD) Af Amer 140 Est GFR (MDRD) Non-Af 116 BUN/Creatinine Ratio 21.9 H Glucose 80 Calcium 8.6 Troponin I < 0.02 Assessment/Plan Patient was seen and examined independently of this practitioner, Lilo James. I agree with a interval history, physical exam and assessment and plan pigmented above. Noted events of recurrent syncopal episodes. Appreciate neurology consult. 2D echo from Dr. Mcgee's office was negative. Troponins trend has been negative. No acute events on telemetry. EEG ongoing, would get orthostatic vitals every shift, consult cardiology -Discussed with Dr Cheung; he plans on doing a loop recorder in the outpatient. We will continue to monitor patient on telemetry. Code Visit Inpatient E&M: 24610 Init Hosp L3
--- NOTE | 2017-10-17 13:03 | PN_ITS ---
<Lilo James - Last Filed: 10/17/17 13:03> Subjective: Patient seen and examined. Denies further syncopal episodes. Denies dizziness , lightheadedness. States she had an episode overnight where she felt anxious and her heart rate was elevated. Cramping legs were relieved with Ativan which she was given during the night. Denies chest pain, shortness of breath. Denies other complaints. - Physical Exam General: Alert, Oriented x3, Cooperative, No apparent distress HEENT: Atraumatic, PERRLA, EOMI, Normocephalic Neck: Supple, No JVD, Negative Carotid Bruits Lungs: Clear to auscultation, Normal air movement Cardiovascular: Regular rate, Regular Rhythm, Normal S1, Normal S2, No murmurs Abdomen: Bowel Sounds Present, Soft, Non Tender Extremities: No clubbing, No cyanosis, No edema, Capillary Refill Less than 3 Seconds Skin: No rashes, No breakdown Musculoskeletal: No Tenderness to Palpation of Joints or Extremities Neurological: Cranial nerves II-XII grossly intact, Neuro grossly intact Psych/Mental Status: Normal Affect, Appropriate Vital Signs Temp Pulse Resp BP Pulse Ox 97.9 F 103 H 16 139/72 H 98 10/17/17 10:51 10/17/17 11:34 10/17/17 10:51 10/17/17 10:51 10/17/17 10:51 Oxygen Delivery Method Room Air Weight: 80.4 kg Body Mass Index (BMI) 30.4 Orthostatic Vital Signs Start: 10/16/17 17:53 Freq: q24h Status: Active Protocol: Activity Type Activity Date Activity User E-Sign Co-Sign Detail Recorded Client Recorded Date Recorded By Document 10/16/17 17:53 MJO [id number] 10/16/17 17:55 MJO 10/16/17 17:53 Orthostatic Vitals Standing -Blood Pressure (90/60-120/80) 151/99 H -Extremity Use Right Arm -Pulse Rate (60-100) 100 Sitting -Blood Pressure (90/60-120/80) 160/92 H -Extremity Use Right Arm -Pulse Rate (60-100) 96 Lying -Blood Pressure (90/60-120/80) 149/94 H -Extremity Use Right Arm -Pulse Rate (60-100) 91 Intake and Output for Last 24 Hours 10/15/17 10/16/17 10/17/17 23:59 23:59 23:59 Intake Total 671 / 671 1579 / 1579 Balance 671 / 671 1579 / 1579 Laboratory Tests Past 24 Hrs 10/16/17 10/16/17 10/17/17 18:35 22:55 04:45 WBC 5.7 RBC 4.50 Hgb 13.9 Hct 41.9 MCV 93.1 MCH 30.9 MCHC 33.2 RDW 13.2 RDW Differential 44.0 H Plt Count 254 MPV 9.1 Sodium Potassium Chloride Carbon Dioxide Anion Gap BUN Creatinine Estim Creat Clear Calc Est GFR (MDRD) Af Amer Est GFR (MDRD) Non-Af BUN/Creatinine Ratio Glucose Calcium Troponin I < 0.02 < 0.02 10/17/17 10/17/17 04:45 04:45 WBC RBC Hgb Hct MCV MCH MCHC RDW RDW Differential Plt Count MPV Sodium 145 Potassium 3.9 Chloride 110 H Carbon Dioxide 25.0 Anion Gap 10 BUN 12 Creatinine 0.55 Estim Creat Clear Calc 43.91 Est GFR (MDRD) Af Amer 140 Est GFR (MDRD) Non-Af 116 BUN/Creatinine Ratio 21.9 H Glucose 80 Calcium 8.6 Troponin I < 0.02 Assessment/Plan The patient is a 72 year old F admitted 10/16/17 due to recurrent syncopal episodes. She saw PCP after recent episode who ordered an EKG which was found to be abnormal and patient was referred to Dr. Olivas [facility] for echocardiogram. Echo reported to be normal by cardiology. Patient states she has intense muscle cramping of both lower extremities nightly and is scared to get out of bed as she feels this has been associated with syncopal episodes in the past. She denies prior cardiac history. No history of seizures. Her past medical history includes asthma and IBS. 1. Recurrent syncopal episodes- reports previous episodes of syncope associated with muscle spasms/painful cramping of lower extremities. However, syncope/pre-syncope has also occurred without the presence of the symptoms. Echocardiogram reported by [facility] cardiology was reported to be normal. No events noted on telemetry. Troponin negative. Urinalysis negative. Electrolytes, TSH within normal limits. Patient underwent nuclear stress test was negative for ischemia. Orthostatic vitals negative. Chest x-ray in ER unremarkable. Carotid duplex ultrasound and EEG pending. Neurology consulted who does not feel symptoms are neurologic in nature. Cardiology consulted who plans on placing a loop recorder in the morning and patient can be discharged afterwards. N.p.o. at midnight. Hold Lovenox prior to loop recorder placement. 2. Mild intermittent asthma- Albuterol PRN. No acute exacerbation. 3. IBS-Continue home regimen of probiotic and Metamucil. DVT prophylaxis-SCDs, Lovenox. Hold Lovenox prior to loop recorder placement tomorrow. This patient was seen by MASSIEL Mathews under the supervision of Dr. Jones. <Jennifer Jones - Last Filed: 10/17/17 14:44> - Physical Exam Vital Signs Temp Pulse Resp BP Pulse Ox 97.9 F 103 H 16 139/72 H 98 10/17/17 10:51 10/17/17 11:34 10/17/17 10:51 10/17/17 10:51 10/17/17 10:51 Oxygen Delivery Method Room Air Weight: 80.4 kg Body Mass Index (BMI) 30.4 Orthostatic Vital Signs Start: 10/16/17 17:53 Freq: q24h Status: Active Protocol: Activity Type Activity Date Activity User E-Sign Co-Sign Detail Recorded Client Recorded Date Recorded By Document 10/16/17 17:53 MJO [id number] 10/16/17 17:55 MJO 10/16/17 17:53 Orthostatic Vitals Standing -Blood Pressure (90/60-120/80) 151/99 H -Extremity Use Right Arm -Pulse Rate (60-100) 100 Sitting -Blood Pressure (90/60-120/80) 160/92 H -Extremity Use Right Arm -Pulse Rate (60-100) 96 Lying -Blood Pressure (90/60-120/80) 149/94 H -Extremity Use Right Arm -Pulse Rate (60-100) 91 Intake and Output for Last 24 Hours 10/15/17 10/16/17 10/17/17 23:59 23:59 23:59 Intake Total 671 / 671 1579 / 1579 Balance 671 / 671 1579 / 1579 Laboratory Tests Past 24 Hrs 10/16/17 10/16/17 10/17/17 18:35 22:55 04:45 WBC 5.7 RBC 4.50 Hgb 13.9 Hct 41.9 MCV 93.1 MCH 30.9 MCHC 33.2 RDW 13.2 RDW Differential 44.0 H Plt Count 254 MPV 9.1 Sodium Potassium Chloride Carbon Dioxide Anion Gap BUN Creatinine Estim Creat Clear Calc Est GFR (MDRD) Af Amer Est GFR (MDRD) Non-Af BUN/Creatinine Ratio Glucose Calcium Troponin I < 0.02 < 0.02 10/17/17 10/17/17 04:45 04:45 WBC RBC Hgb Hct MCV MCH MCHC RDW RDW Differential Plt Count MPV Sodium 145 Potassium 3.9 Chloride 110 H Carbon Dioxide 25.0 Anion Gap 10 BUN 12 Creatinine 0.55 Estim Creat Clear Calc 43.91 Est GFR (MDRD) Af Amer 140 Est GFR (MDRD) Non-Af 116 BUN/Creatinine Ratio 21.9 H Glucose 80 Calcium 8.6 Troponin I < 0.02 Assessment/Plan Patient was seen and examined independently of this practitioner, Lilo James. I agree with a interval history, physical exam and assessment and plan pigmented above. Noted events of recurrent syncopal episodes. Appreciate neurology consult. 2D echo from Dr. Mcgee's office was negative. Troponins trend has been negative. No acute events on telemetry. EEG ongoing, would get orthostatic vitals every shift, consult cardiology -Discussed with Dr Cheung; he plans on doing a loop recorder in the outpatient. We will continue to monitor patient on telemetry. Code Visit Inpatient E&M: [id number] Init Hosp L3
--- NOTE | 2017-10-17 17:29 | PCM.CONS.C ---
Reason for Consult Date of Consultation: 10/17/17 Reason for Consultation: Syncopal episodes History of Present Illness: The patient is a 72 year old F with past medical history of asthma, treated with several months tapering steroids, IBS who presents to the [facility] ED on 10/16/17 w/ history of ongoing intermittent syncopal events and most recently near syncopal event while the seated passenger in a car. She notes intermittent episodes over the years noting they occur primarily when she has been in a standing position and often following BL LE onset severe muscle cramps. She has been evaluated recently per her PCP and was referred to Cardiology w/ EKG RBBB and recent ECHO CC with no marked findings. In the ED work-up included unremarkable VS, including negative orthostatics, unremarkable CBC, unremarkable BMP, normal trop x 1, repeat EKG w/ RBBB, CXR without acute process. In the ED she notes feeling well, no dizziness, lightheadedness. She denies any associated chest pain or dyspnea with these events or prior. She notes in the past she did have one episode with loss of bowels with the event. She does have intermittent muscle cramping and does not have syncope associated but does have severe pain. She underwent stress testing today which did not demonstrate any evidence of ischemia but apparently due to her recurrent syncope cardiology was called to evaluate her. Past Medical History Allergies/Adverse Reactions: Allergies acetaminophen [From Percocet] Adverse Reaction (Verified 10/16/17 17:30) Upset Stomach codeine Adverse Reaction (Verified 10/16/17 17:30) Upset Stomach oxycodone [From Percocet] Adverse Reaction (Verified 10/16/17 17:30) Upset Stomach tramadol [From Ultram] Adverse Reaction (Verified 10/16/17 17:30) Upset Stomach Home Medications: Ambulatory Orders Medication Instructions Recorded Fluticasone Propionate 1 spr NASAL QHS 10/16/17 Fluticasone/Salmeterol [Advair 2 puff IH BID 10/16/17 100-50 Diskus] Past Medical History (Chronic Problems): Chronic Problems Asthma (Chronic) IBS (irritable bowel syndrome) (Chronic) Surgical History: - - Kidney stone removal, tubal ligation. 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 Denies: Chest Discomfort, Shortness of Breath, Orthopnea, PND, Peripheral Edema, Palpitations, Lightheadedness, Dizziness, Near Syncope Respiratory: Denies: Cough, Sputum Production, Hemoptysis Gastrointestinal: Denies: Hematemesis, Hematochezia, Melena Genitourinary: Denies: Dysuria, Hematuria Skin: Denies: Rash Subjectve: Pleasant lady in no distress Objective: Vital Signs Temp Pulse Resp BP Pulse Ox 98.2 F 82 18 136/85 H 95 10/17/17 15:13 10/17/17 15:13 10/17/17 15:13 10/17/17 15:13 10/17/17 15:13 Oxygen Delivery Method Room Air Weight: 177 lb 4.026 oz Body Mass Index (BMI) 30.4 Orthostatic Vital Signs Start: 10/16/17 17:53 Freq: q24h Status: Active Protocol: Activity Type Activity Date Activity User E-Sign Co-Sign Detail Recorded Client Recorded Date Recorded By Document 10/17/17 15:10 IRIS [id number] 10/17/17 15:13 IRIS 10/17/17 15:10 Orthostatic Vitals Standing -Blood Pressure (90/60-120/80) 136/96 H -Extremity Use Right Arm -Pulse Rate (60-100) 92 Sitting -Blood Pressure (90/60-120/80) 135/97 H -Extremity Use Right Arm -Pulse Rate (60-100) 87 Lying -Blood Pressure (90/60-120/80) 136/85 H -Extremity Use Right Arm -Pulse Rate (60-100) 82 Intake and Output for Last 24 Hours 10/15/17 10/16/17 10/17/17 23:59 23:59 23:59 Intake Total 671 / 671 1579 / 1579 Balance 671 / 671 1579 / 1579 General: Awake, Alert, Oriented x 3 HEENT: PERRL, EOMI, Sclera Non Icteric Neck: Supple, Good ROM, No Lymph Node Enlargement Lungs: Clear to auscultation Cardiovascular: Regular Rhythm, Normal S1, Normal S2, No Murmurs, No Rubs, No Gallops Vascular: No Carotid Bruits, Normal Femoral Pulses, Normal Radial Pulses, Normal Dorsalis Pedal Pulse, Normal Posterior Tibial Pulses Abdomen: Bowel Sounds Present, Soft, Non Tender, No HSM, No Organomegaly Extremities: No Cyanosis, No Clubbing, No edema Neurological: No Focal Motor or Sensory Deficit 10/16/17 18:35: Troponin I < 0.02 10/16/17 22:55: Troponin I < 0.02 10/17/17 04:45: WBC 5.7, RBC 4.50, Hgb 13.9, Hct 41.9, MCV 93.1, MCH 30.9, MCHC 33.2, RDW 13.2, RDW Differential 44.0 H, Plt Count 254, MPV 9.1 10/17/17 04:45: Sodium 145, Potassium 3.9, Chloride 110 H, Carbon Dioxide 25.0, Anion Gap 10, BUN 12, Creatinine 0.55, Est GFR (MDRD) Af Amer 140, Est GFR (MDRD) Non-Af 116, BUN/Creatinine Ratio 21.9 H, Glucose 80, Calcium 8.6 10/17/17 04:45: Troponin I < 0.02 Rhythm: EKG:NSR with RBBB Assessment/Plan 1. Recurrent syncope. Etiology of her syncope is not entirely clear. It appears that she has had a normal left ventricular ejection fraction evaluation as well as normal stress testing. She does have an underlying right bundle branch block and my recommendation at this time would be for her to have an outpatient implantable loop recorder which is patient activated placed. This can be arranged next week. This may allow us to discern whether there is an electrical etiology of her recurrent syncopal episodes. I have discussed the above with her and she understands and agrees to proceed. I will arrange this as an outpatient. Thank you for allowing me to participate in the care of your patient. Please don't hesitate to call if any issues arise
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
[2017-10-18] VITALS (8 sets, daily range): BP systolic 113–164; BP diastolic 65–87; PULSE 77–112; RESP 16–19; TEMP 36.4–36.8; O2SAT 95–97
[2017-10-18] MEDS: Acetaminophen 325 MG Tablet 650 MG PO (03:47)
[2017-10-18] MEDS: Ipratropium/Albuterol Sulfate 3 ML AMPUL.NEB INHALATION (06:58)
--- NOTE | 2017-10-18 07:08 | PCM.PN.CARD ---
Subjectve: Patient seen and evaluated. Objective: Vital Signs Temp Pulse Resp BP Pulse Ox 97.5 F L 83 18 139/80 H 95 10/18/17 03:50 10/18/17 03:52 10/18/17 03:50 10/18/17 03:52 10/18/17 03:50 Oxygen Delivery Method Room Air Weight: 177 lb 4.026 oz Body Mass Index (BMI) 30.4 Orthostatic Vital Signs Start: 10/16/17 17:53 Freq: q24h Status: Active Protocol: Activity Type Activity Date Activity User E-Sign Co-Sign Detail Recorded Client Recorded Date Recorded By Document 10/18/17 03:52 AR [id number] 10/18/17 03:56 AR 10/18/17 03:52 Orthostatic Vitals Standing -Blood Pressure (90/60-120/80) 120/79 -Extremity Use Left Arm -Pulse Rate (60-100) 112 H Sitting -Blood Pressure (90/60-120/80) 131/87 H -Extremity Use Left Arm -Pulse Rate (60-100) 93 Lying -Blood Pressure (90/60-120/80) 139/80 H -Extremity Use Left Arm -Pulse Rate (60-100) 83 Intake and Output for Last 24 Hours 10/16/17 10/17/17 10/18/17 23:59 23:59 23:59 Intake Total 671 / 671 2279 / 2279 100 / 100 Balance 671 / 671 2279 / 2279 100 / 100 General: Awake, Alert, Oriented x 3 HEENT: PERRL, EOMI, Sclera Non Icteric Neck: Supple, Good ROM, No Lymph Node Enlargement Lungs: Clear to auscultation Cardiovascular: Regular Rhythm, Normal S1, Normal S2, No Murmurs, No Rubs, No Gallops Vascular: No Carotid Bruits, Normal Femoral Pulses, Normal Radial Pulses, Normal Dorsalis Pedal Pulse, Normal Posterior Tibial Pulses Abdomen: Bowel Sounds Present, Soft, Non Tender, No HSM, No Organomegaly Extremities: No Cyanosis, No Clubbing, No edema Neurological: No Focal Motor or Sensory Deficit Rhythm: EKG: Normal sinus rhythm with a right bundle branch block : Assessment/Plan 1. Recurrent syncope. Etiology of her syncope is not entirely clear. It appears that she has had a normal left ventricular ejection fraction evaluation as well as normal stress testing. She does have an underlying right bundle branch block and my recommendation at this time would be for her to have an outpatient implantable loop recorder which is patient activated placed. This can be arranged next week. This may allow us to discern whether there is an electrical etiology of her recurrent syncopal episodes. I have discussed the above with her and she understands and agrees to proceed. I will arrange this as an outpatient. Thank you for allowing me to participate in the care of your patient. Please don't hesitate to call if any issues arise Complete discharged today.
[2017-10-18] MEDS: Famotidine 20 MG Tablet PO (09:08)
[2017-10-18] MEDS: Fluticasone 0.05% 1 SPRAY NASAL.SRY NASAL (09:08)
[2017-10-18] MEDS: Psyllium 1 PACKET PO (09:08)
--- NOTE | 2017-10-18 10:42 | EEG_ITS ---
- Electroencephalogram Date of service 10/17/17 This is an 18 channel EEG performed with EKG reference leads, photic stimulation , and hyperventilation utilizing International 10-20 electrode placement protocol on this 72-year-old female with a history of syncope. Background activity is 8-10 Hz symmetrically in the posterior leads which attenuates with eye opening. The patient remained awake throughout the recording. Hyperventilation is performed for 3 minutes with good effort with no lateralizing or epileptiform changes in the post hyperventilatory phase is unremarkable. There are no lateralizing or epileptiform changes in the body of the recording. Photic stimulation generates a normal symmetric driving response in the posterior leads and EKG rhythm strip monitoring is normal sinus rhythm throughout the recording. Impression: This is a normal awake electroencephalogram
--- NOTE | 2017-10-18 10:57 | CASEMGMT ---
This RN ANGEL to room complete RODRIGUEZ form with pt at this time. RODRIGUEZ form explained, pt voices understanding and signs at this time. Pt voices no further questions/concerns/needs at this time. Original to chart at this time, pt states no need to have a copy at this time. SStaten KERA ORTIZ
== END 2017-10-18 11:03 | disposition home or self-care (01) ==
LOC: ED 15:17 → PCU 16:38
PROVIDERS: Admitting Provider Family Medicine; Emergency Provider Emergency Medicine; Family Provider Family Medicine; PCP Family Medicine; Visit Provider Internal Medicine
DX: R55 Syncope and collapse (principal); J45.20 Mild intermittent asthma, uncomplicated; K58.9 Irritable bowel syndrome, unspecified; R25.2 Cramp and spasm; I45.10 Unspecified right bundle-branch block; Z79.51 Long term (current) use of inhaled steroids; R94.31 Abnormal electrocardiogram [ECG] [EKG]
CPT/HCPCS: 36415; 70450; 71045; 78452; 80048; 81001; 83735; 84100; 84443; 84484; 85025; 85027; 93005; 93017; 93880; 94640; 95819; 96360; 96361; 99218; 99284; A9500; J7030; A4216; G0378; J2785

== ENCOUNTER → 2017-10-24 10:12 | Day surgery (SDC) | payer MEDICARE, SELFPAY ==
[2017-10-24 10:27] VITALS: BMI 29.7
--- NOTE | 2017-10-24 11:29 | CL.IE_ITS ---
Patient: DANETTE KELLER Study Date: 10/24/2017 Performing: Brennan Cheung MD : 1945 Age: 72 Gender: female PROCEDURES PERFORMED [id number] OF LOOP RECORDER INDICATIONS Syncope PROCEDURE DETAILS The patient was brought to the Catheterization Lab in the postabsorptive nonsedated state. Informed consent was obtained prior to the procedure. Local anesthetic was given subcutaneously to the left up per chest area with Lidocaine 2%. Incision was made to the left upper chest. Instrument, sponge, and needle counts were noted to be normal. The patient tolerated the procedure well. 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 Device Conclusions: Successful implantation of a patient activated loop recorder. Device Recommendations: Follow up with Primary Care Physician Device Recommendations: Follow up with Primary Care Physician PROCEDURE MEDICATIONS Versed 1 mg IV Antibiotic given in appropriate timeframe. Ancef 2 Gm IV @ 10/24/2017 11:02:45 Signed By Brennan Cheung MD On 10/24/2017 11:28:52 AM Brennan Cheung MD
== END ==
PROVIDERS: Family Provider Family Medicine; PCP Family Medicine; Visit Provider Internal Medicine Cardiovascular Disease
DX: R55 Syncope and collapse (principal); K58.9 Irritable bowel syndrome, unspecified; J45.909 Unspecified asthma, uncomplicated
CPT/HCPCS: 33282; 99152; J7040

== ENCOUNTER 2017-12-25 23:00 | Emergency (ER) | payer MEDICARE, SELFPAY ==
[2017-12-25 23:02] VITALS: BP 148/103; PULSE 101; RESP 16; TEMP 36.6; O2SAT 99; BMI 30.4
--- NOTE | 2017-12-25 23:27 | EKG12_ITS ---
Test Reason : Blood Pressure : / mmHG Vent. Rate : 098 BPM Atrial Rate : 098 BPM P-R Int : 168 ms QRS Dur : 146 ms QT Int : 392 ms P-R-T Axes : 046 056 002 degrees QTc Int : 500 ms Normal sinus rhythm Left atrial enlargement Non-specific intra-ventricular conduction block Abnormal ECG Confirmed by ESEQUIEL XIAO, PARTHA ([id number]), make up editor JARAD SALVADOR ([id number]) on 12/27/2017 1:20:44 PM Referred By: MATTHEW Confirmed By:PARTHA IRAHETA MD
--- NOTE | 2017-12-25 23:30 | ED.DCSUM_ITS ---
- ER Visit Summary Date of Service: 12/25/17 Chief Complaint: Dyspnea and nausea History of Present Illness: The patient is a 72 F has had the same symptoms for several months. She has been put through an extensive workup including stress testing which is been negative. She has no known cardiac disease. She does have irritable bowel and asthma. She also has a loop recorder but they have not been able specifically identify any type of dysrhythmia. Patient states she had similar symptoms tonight and came in to be evaluated. Physical Examination: Well appearing older female. Vital signs are stable afebrile. Pulse ox 9 9% room air no signs of hypoxia. H EENT exam unremarkable. Neck nontender no lymphadenopathy. No thyromegaly. Clear to auscultation bilaterally. Heart regular rhythm rate about 100 no murmur. Chest nontender. Abdomen soft nontender. Normal bowel sounds no peritoneal signs. She is moving all 4 extremities. They are neurovascularly intact. Calves are nontender without edema or cords. Back exam nontender. Neurologically she is awake and alert. Test Results: CBC normal. BMP normal. Troponin normal. EKG sinus rhythm rate of 98 with a right bundle branch block unchanged from prior EKG from October. Chest x-ray normal cardiac silhouette no acute abnormality. Loop recorder seen in the left lower chest area Emergency Department Course and Treatment: Repeat exam patient is doing well at 000 5 repeat exam is normal. She denies and her went over all of her tests. They are comfortable being discharged home to follow with Dr. Cheung. Treatment Plan: Call and follow-up with her wireless consultant. She and I did discuss that there may be an anxiety component to this. Disposition: discharge Impression: Dyspnea of uncertain etiology Anxiety This note was generated with [employer] software. It may contain incorrect words, spelling, and punctuation that were not noted in review of the chart prior to signing ED Disposition - Plan for ED Patient: Chief Complaint: Shortness of Breath Referrals: Jeancarlos Baugh MD [Primary Care Provider] -
--- NOTE | 2017-12-25 23:35 | RAD_ITS ---
STUDY: X-RAY CHEST REASON FOR EXAM: Female, 72 years old. SOB, NAUSEA TECHNIQUE: Single AP portable view of the chest. COMPARISON: None. FINDINGS: There is subsegmental atelectasis in the left lung base. There is no demonstrated pleural abnormality. Normal size heart. Normal mediastinum and jazmín. Normal visualized pulmonary arteries. There is atherosclerotic tortuosity of the aortic arch and descending thoracic aorta. Normal visualized thoracic spine. There is degenerative osteoarthritis of the bilateral shoulders. There is no demonstrated abnormality of the visualized soft tissue structures of the upper abdomen. RAD/Chest 1 View (Portable) IMPRESSION: Degenerative changes, as described above. No demonstrated acute cardiopulmonary process. Electronically Signed: Burke Valdovinos MD at 0:48 EDT Tel , Service support ,
[2017-12-25 23:44] LABS: Absolute Lymphocyte Count 1.68 X10^3/ul (0.83-4.51); Absolute Neutrophil Count 3.4 X10^3/uL (2.0-7.7); Basophil# 0.09 X10^3/uL; Basophil% 1.4 % (0-1); Eosinophil# 0.49 X10^3/uL; Eosinophils% 7.7 % (0-5); Hematocrit 42.8 % (37-47); Hemoglobin 14.1 g/dl (12.0-15.0); Lymphocyte # 1.68 X10^3/ul (4.0); Lymphocyte % 26.4 % (19-41); Mean Corp Hgb Conc 32.9 g/gl (32-36); Mean Corpuscular Hgb 30.4 pg (27.0-32.0); Mean Corpuscular Volume 92.2 fL (81-99); Mean Platelet Vol. 8.8 fl (6.2-12.0); Monocyte# 0.69 X10^3/uL; Monocyte% 10.8 % (0-10); Neutrophil # 3.39 X10^3/uL (2.7-7.7); Neutrophil % 53.4 % (47-70); POSITIVE COUNT NO; POSITIVE DIFFERENTIAL NO; POSITIVE MORPHOLOGY NO; Platelet Count 250 K/mm3 (150-450); RBC Distribution Width CV 13.4 % (11.6-14.6); RBC Distribution Width SD 45.6 fl (35.1-43.9); Red Blood Count 4.64 M/mm3 (4.2-5.4); White Blood Count 6.4 K/mm3 (4.4-11.0)
[2017-12-25] MEDS: LORazepam 1 MG Tablet PO (23:56)
[2017-12-26 00:01] LABS: Anion Gap 10 (5-15); BUN 15 mg/dL (7-18); BUN/Creat Ratio 20.6 RATIO (10-20); Calcium,Total 9.8 mg/dL (8.5-10.1); Chloride 105 mmol/L (98-107); Creatinine, Serum 0.73 mg/dL (0.55-1.02); EST Glomerular Filtration Rate 84 mL/min (>60); Est Glom Filt Rate - Afr Amer 101 mL/min (>60); Estimated Creatinine Clearance 43.91 ml/min; Glucose 98 mg/dL (74-106); Potassium 3.8 mmol/L (3.5-5.1); Sodium Level 141 mmol/L (136-145)
--- NOTE | 2017-12-26 00:08 | ED.DEP ---
ED Disposition - Plan for ED Patient: Disposition: Home or Assisted Living Chief Complaint: Shortness of Breath Instructions: ED Dyspnea Shortness of Breath Prescriptions: Lorazepam [Ativan] 0.5 mg PO DAILY PRN PRN #10 tab PRN Reason: Anxiety Referrals: Brennan Cheung MD [STAFF PHYSICIAN] - Additional Instructions: Call and follow-up with Dr. Cheung. All your tests were normal tonight. There may be an anxiety component to this. I will write you a small prescription for Ativan which he may use as needed.
[2017-12-26 00:13] VITALS: BP 134/86; PULSE 93; RESP 18; O2SAT 97
[2017-12-26 00:14] VITALS: BP 134/96; PULSE 93; RESP 18; O2SAT 97
--- NOTE | 2017-12-26 13:56 | CM.ED ---
ED CALLBACK: Follow-up call placed to patient, Madai. Madai states she is feeling better after taking the Ativan. She is filling her prescription today and did call Dr. Cheung's office. She states that Dr. Cheung said he did not need to see her and that she should follow-up with her PCP. I did question patient on whether his office was aware she has the loop recorder and of her symptoms. She states these were conveyed and he felt it not necessary to see her. Madai has made an appointment with Dr. Baugh for this . Patient denies concerns/questions at this time.
== END 2017-12-26 00:20 | disposition home or self-care (01) ==
PROVIDERS: Emergency Provider Emergency Medicine; Family Provider Family Medicine; PCP Family Medicine
DX: R06.00 Dyspnea, unspecified (principal); F41.9 Anxiety disorder, unspecified; I45.10 Unspecified right bundle-branch block; K58.9 Irritable bowel syndrome, unspecified; J45.909 Unspecified asthma, uncomplicated; Z79.899 Other long term (current) drug therapy
CPT/HCPCS: 71045; 80048; 84484; 85025; 93005; 99285; A4216

== ENCOUNTER 2018-01-07 21:42 | Emergency (ER) | payer MEDICARE, SELFPAY ==
[2018-01-07 21:45] VITALS: BP 160/106; PULSE 106; RESP 18; TEMP 36.7; O2SAT 96; BMI 30.4
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
--- NOTE | 2018-01-07 21:59 | RAD_ITS ---
STUDY: X-RAY - LEFT ANKLE REASON FOR EXAM: Female, 72 years old. Pain. Left ankle. TECHNIQUE: 3 view(s) of the ankle. COMPARISON: None. FINDINGS: Normal visualized distal tibia and fibula. Normal medial and lateral malleoli. Normal tibiotalar articulation and ankle mortise. There is a plantar calcaneal enthesophyte present. The visualized subtalar, talonavicular, calcaneocuboid and tarsal articulations are normal. The soft tissue structures are unremarkable. RAD/Ankle min 3 Views IMPRESSION: No acute osseous injury. Electronically Signed: Brittany Jara MD at 23:02 EDT Tel , Service support ,
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
[2018-01-07] MEDS: HYDROcodone Bitartrate/Apap 5/325 Tablet PO (22:24)
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
[2018-01-07 23:15] VITALS: BP 147/74; PULSE 90; RESP 18; O2SAT 98
== END 2018-01-07 23:16 | disposition home or self-care (01) ==
PROVIDERS: Emergency Provider Emergency Medicine; Family Provider Family Medicine; PCP Family Medicine
DX: S20.212A Contusion of left front wall of thorax, initial encounter (principal); S90.02XA Contusion of left ankle, initial encounter; V49.9XXA Car occupant (driver) (passenger) injured in unspecified traffic accident, initial encounter; Y93.9 Activity, unspecified; Y92.9 Unspecified place or not applicable; Y99.9 Unspecified external cause status; J45.909 Unspecified asthma, uncomplicated; Z79.899 Other long term (current) drug therapy
CPT/HCPCS: 71101; 73610; 99283